=== PATIENT | female | born 1950 | race Two or more races ===

== ENCOUNTER 2017-09-09 11:03 | Inpatient (IN) | payer OTHER ==
[2017-09-09] VITALS (15 sets, daily range): BP systolic 116–159; BP diastolic 55–95
[~2017-09-09] VITALS: Ht 154.9 cm; Wt 76.2 kg
--- NOTE | 2017-09-09 11:04 | NUR ---
[id number] FROM [facility]: UNABLE TO WAKE UP FROM ANESTHESIA SP RIGHT SHOULDER REPAIR BY DR CUEVA,. PATIENT RECEIVED INTUBATED WITH F6.5- 23 AT THE LIP . PATIENT RESPONSE TO PAIN. SKIN IS WARM TO TOUCH AND NON DIAPHORETIC. AFEBRILE. RIGHT ARM NOTED WITH SLING, RIGHT SHOULDER WITH DRY DRESSING. IV ON LFT WRIST NOTED INTACT AND PATENT. VSS
--- NOTE | 2017-09-09 11:10 | NUR ---
RECEIVED VERBAL ORDERS FROM DR. MORALES FOR PROPOFOL IV DRIP. ORDERS CARRIED OUT. IV ACCESS SENIOR POWER SCHEDULER.
[2017-09-09 11:23] LABS: BASOPHILS % (AUTO) 0.3 % (0.0-2.0); EOSINOPHILS % (AUTO) 0.2 % (0.0-6.0); HEMATOCRIT 43 % (33-45); HEMOGLOBIN 14.7 g/dL (11.5-14.8); LYMPHOCYTES % (AUTO) 9.4 % (20.0-44.0); MEAN CORPUSCULAR HEMOGLOBIN 32 PG (26.0-33.0); MEAN CORPUSCULAR HGB CONC 34 g/dl (31.0-36.0); MEAN CORPUSCULAR VOLUME 93 fL (82-100); MONOCYTES # (AUTO) 0.2 /CMM (0.1-1.30); MONOCYTES % (AUTO) 1.8 % (2.0-12.0); NEUTROPHILS # (AUTO) 9.5 /CMM (1.8-8.9); NEUTROPHILS % (AUTO) 88.3 % (43.0-81.0); PLATELET COUNT (AUTO) 184 /CMM (150-450); RDW COEFFICIENT OF VARIATION 12.2 (11.5-15.0); RED BLOOD CELL COUNT(AUTO) 4.61 MIL/uL (4.0-5.2); WHITE BLOOD COUNT (AUTO) 10.7 K/uL (4.3-11.0)
[2017-09-09] MEDS ORDERED: PROPOFOL 100 ML IV ONE ×2 (11:26→11:30)
--- NOTE | 2017-09-09 11:28 | NUR ---
PT REC'D INTUBATED ETT SZ 6.5 22CM@LIP VIA AMBU BAG 15L. PT PLACED ON [facility] VENT SETTINGS CHARTED. VENT PLUGGED INTO RED OUTLET. ALARMS ARE SET AND AUDIBLE. AMBU BAG BEDSIDE. WILL CONTINUE TO MONITOR Addendum: 09/09/17 at 1131 by LA DUMONT RT Amended: Links added.
[2017-09-09 11:38] LABS: INR 0.92 (0.87-1.13); PROTHROMBIN TIME 9.6 SECS (9.5-12.7)
[2017-09-09 11:40] LABS: ALANINE AMINOTRANSFERASE 133 U/L (12-78); ALBUMIN 3.6 g/dL (3.4-5.0); ALKALINE PHOSPHATASE 69 U/L (46-116); ASPARTATE AMINOTRANSFERASE 97 U/L (15-37); BILIRUBIN,DIRECT 0.1 mg/dL (0.0-0.2); BILIRUBIN,TOTAL 0.3 mg/dL (0.2-1.0)
--- NOTE | 2017-09-09 11:40 | NUR ---
PANEL ON-CALL PAGED
--- NOTE | 2017-09-09 11:41 | NUR ---
HEEL SEATER AT BS
[2017-09-09 11:45] LABS: TROPONIN I < 0.017 ng/mL (0.00-0.056)
[2017-09-09 11:46] LABS: ABG BASE EXCESS -3.9 mmol/L; ABG OXYGEN SATURATION 99.2 % (92.0-98.5); ABG PCO2 39.1 mmHg (35.0-45.0); ABG PH 7.353 (7.350-7.450); ABG PO2 342.6 mmHg (75.0-100.0); AaDO2 331.3 mmHg; COHb 0.3 % (0.5-1.5); MetHb 0.6 % (0.0-1.5); O2Hb 98.3 % (94.0-97.0); SITE, ABG Left Radial; VENT MODE, BG AC 16 550 100% +5
[2017-09-09] MEDS ORDERED: FLUT9.9S NAS (13:55)
[2017-09-09] MEDS ORDERED: DICL100G16 TP (13:55)
[2017-09-09] MEDS ORDERED: TRAM50TA2 PO (13:55)
[2017-09-09] MEDS ORDERED: DOCU-141 PO (13:55)
[2017-09-09] MEDS ORDERED: ATOR20TA PO (13:55)
[2017-09-09] MEDS ORDERED: ALBU8.5H8 INH (13:55)
[2017-09-09] MEDS ORDERED: OMEP40CA37 PO (13:55)
[2017-09-09] MEDS ORDERED: SIME180C49 PO (13:55)
[2017-09-09] MEDS ORDERED: CLON0.5T4 PO (13:55)
[2017-09-09] MEDS ORDERED: CHOL100044 PO (13:55)
--- NOTE | 2017-09-09 13:57 | NUR ---
REPORT GIVEN TO LAURYN ALCOCER FOR CONTINUITY OF CARE
--- NOTE | 2017-09-09 14:20 | NUR ---
PATIENT TRANSPORTED TO ICU. VSS
--- NOTE | 2017-09-09 14:40 | NUR ---
ICU/RN PT ADMITTED FROM ER INTUBATED ON THE VENT AC MODE ,SEDATED ON DIPRIVAN AT 10 MCG.V/S STABLE,AFEBRILE.NO PAIN REPORTED AT THIS TIME.PT IS POST OP RIGHT ARM SLING ON.WAS TRANSFERRED [facility], POST OP RIGHT ROTATOR CUFF.CONTINUE MONITORING,
--- NOTE | 2017-09-09 15:00 | NUR ---
ICU/RN PT IS OFF PROPOFOL.AWAKE ,ALERT.PLACED ON SIMV MODE. V/S STABLE.FAMILY AT BEDSIDE.
--- NOTE | 2017-09-09 15:20 | NUR ---
ICU/SPEECH LANGUAGE SPECIALIST TO ICU - 250 REPORT GIVEN BY CHARGE NURSE FOR PT ADMITTED FOR ACUTE RESPIRATORY FAILURE. ADMISSION INTERVIEW PROCESS WITH PT'S AT BEDSIDE. PT JUST TAKEN OFF SEDATION. PT WAS ORALLY INTUBATED 6.5CM WITH TIP AT 20CM ON LIP. VENTILATOR SET @ AC 16, TV 550, FIO2 50% AND PEEP 5. SATURATING WELL. WHILE INTERVIEWING PT'S PT IS BEING EXTUBATED, THE PLACED ON 3L N/C SATURATING WELL @ 97%, LUNG SOUNDS CLEAR. PT AWAKE CONVERSING, RESPIRATIONS EVEN & UNLABORED. SURGICAL SITE ON RIGHT SHOULDER WITH DRESSING INTACT, CLEAN & DRY. CL WITHIN REACHED AND SAFETY MAINTAINED. ON GOING MONITORING.
--- NOTE | 2017-09-09 15:46 | NUR ---
PATIENT REC'D ORALLY INTUBATED FROM ER ON [facility]. PER FREDI HARPER PATIENT WAS RAPID WEAN AND EXTUBATED. PATIENT PLACED ON 3L N/C IRA WELL. RN AT BEDSIDE
--- NOTE | 2017-09-09 16:00 | NUR ---
ICU/RN AFTERNOON ROUNDS ON 3L O2 VIA, NO RESPIRATORY DISTRESS, PT'S AT BEDSIDE. ON GOING MONITORING.
[2017-09-09] MEDS ORDERED: IV NS 0.9% 1,000 ML IV PRN (18:09)
[2017-09-09] MEDS ORDERED: Z GUARD REMEDY 2 OZ OINT TP PRN (18:30)
[2017-09-09] MEDS ORDERED: ACETAMINOPHEN 325 MG TABLET PO PRN (18:30)
[2017-09-09] MEDS ORDERED: ONDANSETRON HCL/PF 4 MG/2 ML VIAL IVP PRN (18:30)
[2017-09-09] MEDS ORDERED: TRAMADOL HCL 50 MG TABLET PO PRN (18:30)
[2017-09-09] MEDS ORDERED: SIMETHICONE 80 MG TAB.CHEW PO PRN (18:30)
--- NOTE | 2017-09-09 19:14 | NUR ---
ICU/RN AM SHIFT END NOTES NO RESPIRATORY DISTRESS NOTED SINCE PT PLACED ON 3L O2 VIA N/C, SATURATING WELL. ALL NEEDS MET. PT ENDORSED TO PM NURSE TO CONTINUE CARE. CL WITHIN REACHED AND SAFETY MAINTAINED.
[2017-09-09] MEDS ORDERED: ALBUTEROL FS 2.5 MG/0.5 ML VIAL.NEB NEB PRN (19:30)
--- NOTE | 2017-09-09 19:30 | NUR ---
BISQUE FINISHER INITIAL NOTES RECEIVED PATIENT AWAKE A/OX3, ABLE TO MAKE NEEDS KNOWN. STATES TO HAVE 5/10 RIGHT SHOULDER PAIN, BUT TOLERABLE, WISHES NOT TO HAVE PAIN MEDICATION AT THIS TIME. RESPIRATIONS EVEN AND UNLABORED, WITH 3LPMO2 VIA NC, SPO2 97%. NOTED WITH RIGHT SHOULDER DRESSING CLEAN, DRY AND INTACT. ON TELE MONITOR SINUS TACH 106. SKIN WARM AND DRY TO TOUCH. HOB ELEVATED. SIDE RAILS UP AND LOCKED. BED KEPT AT LOWEST POSITION. CALL LIGHT KEPT WITHIN EASY REACH. WILL CONTINUE TO MONITOR.
[2017-09-09] MEDS: FAMOTIDINE (20 MG) 20 MG TABLET PO SCH (21:33)
[2017-09-09] MEDS: oxyCODONE/APAP (5/325 MG) 1 UDTAB TABLET PO PRN (21:34)
[2017-09-09] MEDS ORDERED: clonazePAM 0.5 MG TABLET PO SCH (22:00)
[2017-09-09] MEDS ORDERED: DOCUSATE SODIUM 100 MG CAPSULE PO SCH (22:00)
[2017-09-09] MEDS ORDERED: ATORVASTATIN 10 MG TABLET PO SCH (22:00)
[2017-09-10] VITALS (15 sets, daily range): BP systolic 109–172; BP diastolic 50–78
[2017-09-10] MEDS: oxyCODONE/APAP (5/325 MG) 1 UDTAB TABLET PO PRN ×3 (02:08→13:06)
[2017-09-10 05:21] LABS: EOSINOPHILS % (AUTO) 0.4 % (0.0-6.0); HEMATOCRIT 36 % (33-45); HEMOGLOBIN 12.2 g/dL (11.5-14.8); LYMPHOCYTES % (AUTO) 16.4 % (20.0-44.0); MEAN CORPUSCULAR HEMOGLOBIN 32 PG (26.0-33.0); MEAN CORPUSCULAR HGB CONC 34 g/dl (31.0-36.0); MEAN CORPUSCULAR VOLUME 94 fL (82-100); MONOCYTES # (AUTO) 0.8 /CMM (0.1-1.30); MONOCYTES % (AUTO) 6.9 % (2.0-12.0); NEUTROPHILS # (AUTO) 9.2 /CMM (1.8-8.9); NEUTROPHILS % (AUTO) 76.3 % (43.0-81.0); PLATELET COUNT (AUTO) 163 /CMM (150-450); RDW COEFFICIENT OF VARIATION 13.1 (11.5-15.0); RED BLOOD CELL COUNT(AUTO) 3.77 MIL/uL (4.0-5.2)
[2017-09-10 05:43] LABS: ALBUMIN 3.2 g/dL (3.4-5.0); BILIRUBIN,TOTAL 0.6 mg/dL (0.2-1.0); CALCIUM, SERUM 8.6 mg/dL (8.5-10.1); CREATININE 0.8 mg/dL (0.6-1.3); PHOSPHORUS 3.7 mg/dL (2.5-4.9); POTASSIUM 4.1 mmol/L (3.5-5.1)
--- NOTE | 2017-09-10 06:36 | NUR ---
CHECKERER HAND CLOSING NOTES NO SIGNIFICANT CHANGES OVERNIGHT. ALL NEEDS ANTICIPATED AND MET. PAIN MONITORED AND MANAGED NEEDED. RIGHT SHOULDER DRESSING DRY AND INTACT, WITH RIGHT ARM SLING IN PLACE. NO RESPIRATORY DISTRESS NOTED. C/ON 3LPMO2 VIA NC. KEPT CLEAN AND DRY. SR ON TELE MONITOR. IVF RUNNING. SIDE RAILS UP AND LOCKED. BED KEPT AT LOWEST POSITION. CALL LIGHT KEPT WITHIN EASY REACH. WILL ENDORSE CONTINUITY OF CARE TO AM NURSE.
--- NOTE | 2017-09-10 07:22 | NUR ---
HOUSING PROJECT MANAGER INITIAL NOTES RECEIVED PATIENT IN BED AWAKE A/OX3, ABLE TO MAKE NEEDS KNOWN. PT STATES SHE IS CURRENTLY HAVING 4/10 RIGHT SHOULDER PAIN, BUT TOLERABLE, PAIN ALSO STATES HAVING DISCOMFORT DURING RESPIRATIONS. RESPIRATIONS REMAIN EVEN AND UNLABORED. PT NOTED WITH RIGHT SHOULDER DRESSING CLEAN, DRY AND INTACT. ON TELE MONITOR SINUS RHYTHM 79. PT SKIN WARM AND DRY TO TOUCH. HOB ELEVATED. SIDE RAILS UP AND LOCKED. BED KEPT AT LOWEST POSITION. CALL LIGHT KEPT WITHIN EASY REACH. RN WILL CONTINUE TO MONITOR. PATIENT HAS A COOL WASH CLOTH PN HER HEAD TO HELP DECREASE TEMP
[2017-09-10] MEDS: FAMOTIDINE (20 MG) 20 MG TABLET PO SCH (08:27)
[2017-09-10] MEDS ORDERED: CHOLECALCIFEROL 1,000 UNIT TABLET (VIT D3) PO SCH (09:00)
[2017-09-10] MEDS ORDERED: FLUTICASONE PROPIONATE 16 GM BOTTLE NS SCH (09:00)
--- NOTE | 2017-09-10 09:51 | NUR ---
RN NOTE PATIENT IN BED AT BESIDE , DISCHARGE PAPERWORK COMPLETED , MD BARROW STATES TO HOLD D/C UNTIL PT EVALUATION PATIENT TAKEN OFF O2 PATIENT SATURATING AT 95-96 % ON ROOM AIR , PATIENT STATES NO SOB OR DISCOMFORT NOTED AT THIS TIME. CHARGE NURSE NOTIFIED AND STATE THAT WE WILL BE MOVING THE PATIENT TO MED SURG UPON A AVAILABLE BED
--- NOTE | 2017-09-10 15:58 | NUR ---
rn note patient discharge patient iv removed by rachel chinchilla patient discharge paperwork reviewed with patient by pérez chinchilla patient stable at discharge etymology teacher escoreted patient and family down stair, no issue or sob noted upon discharge vidhya given 1 point cane due to central supply being out of 4 point canes as requested by pt . case management aware and states vidhya must purchase her own 4 pint cane once d/c
== END 2017-09-10 15:55 | disposition home or self-care (01) | DRG 189 ==
LOC: ER 11:07 → ICU 13:50
PROVIDERS: ADMIT Nurse Practitioner Acute Care; ATTEND Nurse Practitioner Acute Care
DX: J96.00 Acute respiratory failure, unspecified whether with hypoxia or hypercapnia (principal); G89.29 Other chronic pain; I10 Essential (primary) hypertension; M19.90 Unspecified osteoarthritis, unspecified site; N20.0 Calculus of kidney; Z88.5 Allergy status to narcotic agent; S69.92XA Unspecified injury of left wrist, hand and finger(s), initial encounter; X58.XXXA Exposure to other specified factors, initial encounter; Y92.9 Unspecified place or not applicable; T41.45XA Adverse effect of unspecified anesthetic, initial encounter; Y83.9 Surgical procedure, unspecified as the cause of abnormal reaction of the patient, or of later complication, without mention of misadventure at the time of the procedure; Y82.8 Other medical devices associated with adverse incidents; Y92.530 Ambulatory surgery center as the place of occurrence of the external cause; Z90.710 Acquired absence of both cervix and uterus
CPT/HCPCS: 36415; 36600; 71010-TC; 80053-TC; 80061-TC; 80076-TC; 82803-TC; 83735-TC; 84100-TC; 84484-TC; 85025-TC; 85730-TC; 87081-TC; A4606; J3490; J7030; Z7610